=== PATIENT | female | born 1935 | race Caucasian/White ===

== ENCOUNTER 2021-04-29 08:32 | Emergency (ER) | payer MEDICARE, OTHER ==
[~2021-04-29 08:32] MED LIST: ATENOLOL25 MG PO; KLONOPIN0.5 MG PO; NEURONTIN300 MG PO; NORCO 5-325 TA1 EACH PO; PREDNISONE 50 M50 MG PO; PROAIR DIGIHAL90 MCG INH; PROZAC20 MG PO; TEGRETOL200 MG PO; TRIAMTERENE-HC1 EAC1 PO; VALIUM 5 MG TAB5 MG PO; ZOCOR40 MG PO
[2021-04-29 09:58] LABS: HEMOGLOBIN 13.3 gm/dl (12.3-15.3); RED BLOOD COUNT 4.41 M/UL (4.00-5.10); WHITE BLOOD COUNT 8.4 K/UL (4.5-11.0)
[2021-04-29 10:13] LABS: BUN/CREATININE RATIO 9 (0-10)
[2021-04-29 12:39] LABS: BUN/CREATININE RATIO 9 (0-10)
[2021-04-29] MEDS ORDERED: K-DUR TAB 20 M20 MEQ PO (12:53)
[2021-04-29] MEDS ORDERED: ONDANSETRON ODT4 MG SL (12:53)
== END 2021-04-29 13:17 | disposition home or self-care (01) ==
LOC: ER1 08:32
PROVIDERS: Physician Assistant
DX: E86.0 Dehydration (principal); E87.6 Hypokalemia; E87.1 Hypo-osmolality and hyponatremia; R31.9 Hematuria, unspecified; I10 Essential (primary) hypertension; J44.9 Chronic obstructive pulmonary disease, unspecified; K21.9 Gastro-esophageal reflux disease without esophagitis; Z79.899 Other long term (current) drug therapy
CPT/HCPCS: 80048; 80053; 80156; 81001; 82550; 82553; 83690; 83874; 84484; 85025; 93005; 96374; 99284; J2405

== ENCOUNTER 2021-05-01 09:11 | Inpatient (IN) | payer MEDICARE, OTHER ==
[~2021-05-01] VITALS: Ht 160 cm; Wt 76.6 kg
[~2021-05-01 09:11] MED LIST changes: +K-DUR TAB 20 M20 MEQ PO; +ONDANSETRON ODT4 MG SL
[2021-05-01 10:03] LABS: RED BLOOD COUNT 4.27 M/UL (4.00-5.10); WHITE BLOOD COUNT 6.3 K/UL (4.5-11.0)
[2021-05-01 10:37] LABS: BUN/CREATININE RATIO 8 (0-10)
[2021-05-01] MEDS ORDERED: ASPIRIN81 MG PO (15:26)
[2021-05-01] MEDS ORDERED: ACETAMINOPHEN325 MG PO (15:27)
[2021-05-01 17:34] LABS: BUN/CREATININE RATIO 6 (0-10)
[2021-05-01 22:49] LABS: BUN/CREATININE RATIO 6 (0-10)
[2021-05-02 05:14] LABS: HEMOGLOBIN 12.5 gm/dl (12.3-15.3); RED BLOOD COUNT 4.13 M/UL (4.00-5.10); WHITE BLOOD COUNT 7.4 K/UL (4.5-11.0)
[2021-05-02 05:31] LABS: BUN/CREATININE RATIO 4 (0-10)
[2021-05-02 12:07] LABS: BUN/CREATININE RATIO 4 (0-10)
[2021-05-03 04:18] LABS: BUN/CREATININE RATIO 6 (0-10)
[2021-05-03 16:22] LABS: BUN/CREATININE RATIO 8 (0-10)
[2021-05-04 03:14] LABS: BUN/CREATININE RATIO 8 (0-10)
[2021-05-05 03:13] LABS: BUN/CREATININE RATIO 10 (0-10)
[2021-05-05 07:57] LABS: HEMOGLOBIN 12.5 gm/dl (12.3-15.3); RED BLOOD COUNT 4.17 M/UL (4.00-5.10); WHITE BLOOD COUNT 9.1 K/UL (4.5-11.0)
[2021-05-05] MEDS ORDERED: NEURONTIN300 MG PO (12:00)
== END 2021-05-05 12:30 | disposition home or self-care (01) | DRG 641 ==
LOC: ER1 09:11 → CCU 11:21 → PROG CARE 11:21 → CDU 11:21 → CCU 20:40 → PROG CARE 05-03 18:18
PROVIDERS: Internal Medicine Nephrology; Physician Assistant; ADMIT Internal Medicine
DX: E87.1 Hypo-osmolality and hyponatremia (principal); E87.6 Hypokalemia; G50.0 Trigeminal neuralgia; E83.42 Hypomagnesemia; Z20.822 Contact with and (suspected) exposure to COVID-19; T42.1X5A Adverse effect of iminostilbenes, initial encounter; T50.2X5A Adverse effect of carbonic-anhydrase inhibitors, benzothiadiazides and other diuretics, initial encounter; R63.1 Polydipsia; I10 Essential (primary) hypertension; F32.9 Major depressive disorder, single episode, unspecified; J44.9 Chronic obstructive pulmonary disease, unspecified; E78.5 Hyperlipidemia, unspecified; F41.9 Anxiety disorder, unspecified; Z90.49 Acquired absence of other specified parts of digestive tract; Z79.82 Long term (current) use of aspirin
CPT/HCPCS: 36415; 71045; 80048; 80053; 80156; 81001; 82533; 82550; 82553; 83690; 83735; 83874; 83930; 84295; 84439; 84443; 84484; 85025; 93005; 94640; 94664; 94760; 96374; 99284; 99285; C9113; J1650; J2405; J2597; J3475; J7070; J7131; U0002

== ENCOUNTER → 2021-05-10 | Outpatient (CLI) | payer MEDICARE, OTHER ==
[~2021-05-10] MED LIST changes: +ACETAMINOPHEN325 MG PO; +ASPIRIN81 MG PO
[2021-05-10 12:44] LABS: BUN/CREATININE RATIO 15 (0-10)
== END ==
LOC: LAB 11:26
PROVIDERS: Internal Medicine Nephrology
DX: E87.1 Hypo-osmolality and hyponatremia (principal)
CPT/HCPCS: 36415; 80048

== ENCOUNTER → 2021-05-26 | Outpatient (CLI) | payer MEDICARE, OTHER | LOC: EMI 15:06 | DX: G50.0 Trigeminal neuralgia (principal); G31.9 Degenerative disease of nervous system, unspecified | CPT/HCPCS: 70551 ==

== ENCOUNTER → 2021-07-13 | Outpatient (CLI) | payer MEDICARE, OTHER | LOC: OPSV 10:05 | DX: E87.1 Hypo-osmolality and hyponatremia (principal) | CPT/HCPCS: 96365; 96366; J3475 ==